=== PATIENT | female | born 1970 | race Caucasian/White ===

== ENCOUNTER 2018-09-26 11:50 | Emergency (ER) | payer OTHER ==
[2018-09-26] MEDS: KETOROLAC 30 MG INJ IM (12:12)
== END 2018-09-26 13:08 | disposition home or self-care (01) ==
LOC: FTE 11:50
DX: S80.02XA Contusion of left knee, initial encounter (principal); E11.9 Type 2 diabetes mellitus without complications; W18.39XA Other fall on same level, initial encounter; Y92.9 Unspecified place or not applicable; Z79.84 Long term (current) use of oral hypoglycemic drugs
CPT/HCPCS: 73562; 96372; 99284-25

== ENCOUNTER 2019-04-25 13:30 | Emergency (ER) | payer OTHER ==
[2019-04-25] MEDS: CEFTRIAXONE 1 GM INJ IM (14:54)
[2019-04-25] MEDS: LIDOCAINE 1% (MPF) 5 ML VIAL INJ (14:54)
== END 2019-04-25 15:22 | disposition home or self-care (01) ==
LOC: FTE 13:30
DX: K04.7 Periapical abscess without sinus (principal); E11.9 Type 2 diabetes mellitus without complications; Z79.84 Long term (current) use of oral hypoglycemic drugs
CPT/HCPCS: 96372; 99284-25